=== PATIENT | male | born 1950 | race Caucasian/White ===

== ENCOUNTER 2019-04-02 11:14 | Emergency (ER) | payer MEDICARE ==
[2019-04-02 12:05] VITALS: BP 117/81
--- NOTE | 2019-04-02 12:10 | UC ---
Throat Pain/Nasal Danis HPI - HPI Summary HPI Summary: 69-year-old male with cold symptoms and a sore throat for the past 4 or 5 days. He states he has had 2 episodes where he feels like his throat is closing up and so he is only been able to drink broth. He does not have that feeling today. He states several members of his family had similar sore throats which resolved but took 2 or 3 weeks to resolve. He is a previous smoker and occasionally will use "E-cigarettes" - History of Current Complaint Chief Complaint: UCRespiratory Stated Complaint: ST,CONGESTION Time Seen by Provider: 04/02/19 11:56 Hx Obtained From: Patient Onset/Duration: Gradual Onset Severity: Mild Pain Intensity: 4 Cough: Nonproductive Associated Signs & Symptoms: Positive: Hoarseness - Allergies/Home Medications Allergies/Adverse Reactions: Allergies Allergy/AdvReac Type Severity Reaction Status Date / Time No Known Allergies Allergy Verified 04/02/19 11:52 Home Medications: Home Medications Dm/PE/Acetaminophen/Doxylamine [Vicks Dayquil/Nyquil Cold] 1 mis PO PRN [History] Ibuprofen TAB* [Advil TAB*] 400 mg PO Q6H PRN 04/02/19 [History Confirmed ] Multivitamin [Multivitamins] 1 cap PO DAILY 04/02/19 [History Confirmed 04/02/19 ] Pseudoephedrine TAB* [Sudafed TAB*] 30 mg PO Q6H PRN 04/02/19 [History Confirmed 04/02/19] Statin, ? Name 1 tab PO DAILY 04/02/19 [History] PMH/Surg Hx/FS Hx/Imm Hx Previously Healthy: Yes - Surgical History Surgical History: Yes Surgery Procedure, Year, and Place: [facility] - Family History Known Family History: Positive: Non-Contributory - Social History Alcohol Use: Occasionally Substance Use Type: None Smoking Status (MU): Light Every Day Tobacco Smoker Type: eCigarettes Review of Systems All Other Systems Reviewed And Are Negative: Yes ENT: Positive: Sore Throat, Nasal Discharge - Clear runny nose. Respiratory: Positive: Cough - Occasional nonproductive cough. Is Patient Immunocompromised?: No Physical Exam Triage Information Reviewed: Yes Appearance: Well-Appearing, No Pain Distress, Well-Nourished Vital Signs: Initial Vital Signs Temp 98.6 F 04/02/19 11:57 Pulse 80 04/02/19 11:57 Resp 16 04/02/19 11:57 BP 117/81 04/02/19 11:57 Pulse Ox 100 04/02/19 11:57 Vital Signs Reviewed: Yes Eyes: Positive: Conjunctiva Clear ENT: Positive: Pharyngeal erythema, Nasal drainage - Clear nasal coryza, TMs normal, Hoarse voice - Mild hoarseness., Uvula midline. Negative: Tonsillar exudate, Trismus, Muffled voice, Sinus tenderness Neck: Positive: Supple, Nontender, No Lymphadenopathy Respiratory: Positive: Lungs clear, Normal breath sounds, No respiratory distress, No accessory muscle use Cardiovascular: Positive: RRR, No Murmur, Pulses Normal, Brisk Capillary Refill Musculoskeletal: Positive: Strength Intact, ROM Intact Neurological: Positive: Alert, Muscle Tone Normal Psychological Exam: Normal Skin Exam: Normal Throat Pain/Nasal Course/Dx - Course Course Of Treatment: Rapid strep test: Negative I'm going to start the patient on 40 mg of prednisone daily 3 days. He is to follow-up with his primary care provider if no improvement in 2 or 3 days ago to the emergency room if any worsening symptoms. He may also do warm saltwater gargles, throat lozenges. The fact that all of the family members have had a similar sore throat which lasted about 2 weeks, I believe this is more viral in nature. Because of his past smoking history I advised him if he continues to be hoarse for more than 3-4 weeks he is to follow-up with an ear nose and throat physician. - Differential Dx/Diagnosis Provider Diagnosis: Pharyngitis Discharge - Sign-Out/Discharge Documenting (check all that apply): Patient Departure All imaging exams completed and their final reports reviewed: No Studies - Discharge Plan Condition: Good Disposition: HOME Prescriptions: predniSONE [Prednisone 20 MG TAB] 40 mg PO DAILY 3 Days #6 tablet Patient Education Materials: Pharyngitis (ED) Referrals: Umberto Lux MD [Primary Care Provider] - Additional Instructions: Warm saltwater gargles, throat lozenges for comfort, take the prednisone with food, follow-up with her primary care provider if no improvement in 2 or 3 days. - Billing Disposition and Condition Condition: GOOD Disposition: Home - Attestation Statements Provider Attestation: This patient was not seen by me. I was available for consult. CALLI
== END 2019-04-02 12:57 | disposition home or self-care (01) ==
LOC: UCCORT 11:14
DX: J02.9 Acute pharyngitis, unspecified (principal); F17.290 Nicotine dependence, other tobacco product, uncomplicated
CPT/HCPCS: 87651; 99212; G0463